=== PATIENT | male | born 1940 | race Caucasian/White ===

== ENCOUNTER → 2017-09-23 | Outpatient (CLI) | payer MEDICARE ==
[~2017-09-23] MED LIST: ASPI81TA82 PO; ECASA81 PO; LANO0.2510 PO; MULTTAB67 PO; TAB-TAB PO; TYLE325T PO
[2017-09-23 13:05] LABS: HEMATOCRIT 46.6 % (39.0-51.0); MEAN CELL VOLUME 94.2 FL (80.0-100.0); MEAN CORPUSCULAR HEMOGLOBIN 31.2 PG (27.0-34.0); MEAN CORPUSCULAR HGB CONC 33.2 % (32.0-36.0); PLATELET COUNT 132 TH/MM3 (150-450); RED BLOOD COUNT 4.95 MIL/MM3 (4.50-5.90); RED CELL DISTRIBUTION WIDTH 13.3 % (11.6-17.2); REVIEW FLAG FINAL; WHITE BLOOD COUNT 3.6 TH/MM3 (4.0-11.0)
--- NOTE | 2017-09-23 21:17 | EKG ---
Date Performed: 09/23/2017 Time Performed: 12:28:02 PTAGE: 77 years EKG: SINUS BRADYCARDIA BORDERLINE ECG NO PREVIOUS TRACING DOCTOR: Maximiliano Do Interpretating Date/Time 09/23/2017 21:15:45
== END ==
LOC: CPRE 12:07
PROVIDERS: ATTEND Specialist
DX: Z01.810 Encounter for preprocedural cardiovascular examination (principal); Z01.812 Encounter for preprocedural laboratory examination; R94.31 Abnormal electrocardiogram [ECG] [EKG]
CPT/HCPCS: 36415; 85027; 93005

== ENCOUNTER → 2017-09-25 | Day surgery (SDC) | payer MEDICARE ==
--- NOTE | 2017-09-24 18:52 | MH ---
cc: ERIK LANGE DATE OF ADMISSION: 09/25/2017 ADMITTING DIAGNOSIS: HISTORY OF PRESENT ILLNESS: The patient is a 77-year-old gentleman with chronic sinusitis and nasal obstruction for nasal sinus surgery. PAST MEDICAL HISTORY Unremarkable. PAST SURGICAL HISTORY: Notable for previous turbinectomy. REVIEW OF SYSTEMS, FAMILY HISTORY AND SOCIAL HISTORY Unremarkable PHYSICAL EXAMINATION Well-appearing patient, no acute distress noted. HEENT: Exam reveals the patient with septal deviation, turbinate hypertrophy and polyposis worse on right than left. Lungs: Clear. Heart: Regular rate and rhythm. Abdomen: Soft and nontender. Extremities: Without cyanosis, clubbing or edema. Neurologic: Alert, oriented, nonfocal neurologic exam. IMPRESSION A patient with chronic sinusitis and nasal obstruction for nasal sinus surgery. Instructed as to the method of surgery, possible complication including anesthetic complications, cardiac difficulty, pulmonary difficulty, stroke, coma or even . Surgical complications such as bleeding, infection, risk of injury to orbit including blindness and risk of injury to brain, including CSF leak, meningitis, brain abscess or even . The patient appeared to agree accept and understand the above-mentioned risks and benefits. No guarantees or warranties regarding outcome were given. We will therefore proceed with surgery. Erik Lange MD [facility]/JACE /5:07 PM /6:50 PM
[~2017-09-25] VITALS: Ht 185.4 cm; Wt 89.2 kg
[~2017-09-25] MED LIST changes: +*morphine SULFATE 8 MG/ML PERIprocedure ONLY ONE; +ACETAMINOPHEN/HYDROcodone 325 MG/7.5 MG TAB PO PRN; -ASPI81TA82 PO; +CHLORHEXIDINE GLUCONATE 2 % 1 PACK (2 CLOTHS) TOPICAL PRN; +DEXAMETHASONE SOD PHOS 4 MG/ML VIAL IV ONE; +DO NOT ADM ANY ANTICOAGULANT DRUGS PRN; +EPINEPHrine HCL (1:1000) 30 MG/30 ML VIAL ONE; +INSULIN HUMAN REGULAR 1,000 UNITS/10 ML VIAL SQ PRN; +LACTATED RINGER'S 1000 ML IV PRN; -LANO0.2510 PO; +LIDOCAINE 1%/EPINEPHrine 1:100,000 SOLN 20 ML VIAL ONE; +LIDOCAINE HCL 1% PF 5 ML AMPULE OTHER ONE; +METOPROLOL TARTRATE 25 MG TAB PO PRN; +MORPHINE SULFATE 2 MG/ML INJ IV PUSH PRN; +ONDANSETRON HCL 4 MG/2 ML VIAL IV PUSH ONE; +ONDANSETRON HCL 4 MG/2 ML VIAL IV PUSH PRN; +POVIDONE IODINE 5% (ANTISEPSIS KIT) 4 APPLICATIONS EACH NARE PRN; +PROPOFOL 200 MG/20 ML AMP IV ONE; +SODIUM CHLORID 0.9% 500 ML IV PRN; -TAB-TAB PO; +ePHEDrine/NS 25 MG/5 ML SYR IV ONE
[2017-09-25 11:50] VITALS: BP 141/79; PULSE 68; RESP 20; TEMP 97.5; O2SAT 93
--- NOTE | 2017-09-25 12:28 | MP ---
cc: ERIK LANGE DATE OF SURGERY 09/25/2017 PREOPERATIVE DIAGNOSES Nasal obstruction. Chronic sinusitis. Nasal polyposis. Turbinate hypertrophy. PROCEDURE Open septal reconstruction. Left frontal endoscopic sinusotomy. Right frontal endoscopic sinusotomy. Left endoscopic anterior-posterior ethmoidectomy. Right endoscopic anterior-posterior ethmoidectomy. Left endoscopic maxillary antrostomy with removal of tissue. Right endoscopic maxillary antrostomy with removal of tissue. Right nasal polypectomy. Left and right inferior turbinectomy, submucous resection ANESTHESIA General anesthesia. ESTIMATED BLOOD LOSS Less than 100 cc. COMPLICATIONS No complications. OPERATING SURGEON Dr. Lange. OPERATION FOLLOWS The patient was prepped and draped in usual fashion. 1% Xylocaine and 1:100,000 epinephrine injected into nasal septum bilaterally, polyps on the right side and middle meatus bilaterally. Once this was achieved, the balloon apparatus was used under endoscopic visualization to open the left frontal sinus initially catheterizing the sinus and confirming with light catheter placement, then advancing the balloon and inflating it to 6 atmospheres. At this point the microdebrider was then used under endoscopic visualization to remove the polyps from the right middle meatus and the naris and once this was achieved the microdebrider was used also to open the frontal sinus recess. Anterior-posterior ethmoidectomy was performed under endoscopic visualization as well as the natural antrostomy identified and enlarged and polypoid tissue suctioned from it. A Telfa splint was placed in the right middle meatus. Once this was achieved attention was turned to the left side whereby an uncinectomy was performed with microdebrider under endoscopic visualization. Anterior-posterior ethmoidectomy performed with microdebrider under endoscopic visualization and the natural antrostomy identified enlarged and polypoid tissue removed, all under endoscopic visualization. Telfa splint placed in middle meatus. Mucoperichondrial incision made on the left side of nose. Mucoperichondrial flap elevated. A significant amount of bone and cartilage were removed to improve nasal airway and reduce nasal fracture. Mucoperichondrial flap reapproximated. Using the coblator probe with power Level IV multiple insertions were made on both the left and right inferior turbinates significantly reducing the turbinate bulk without affecting mucosa, in other words a submucosal reduction. No active bleeding was noted. The nose was suctioned. The patient tolerated the procedure well. MD RONNI Ibarra /10:18 AM /12:23 PM
== END | disposition home or self-care (01) ==
LOC: HSDC 07:23
PROVIDERS: ATTEND Specialist
DX: J32.9 Chronic sinusitis, unspecified (principal); J34.3 Hypertrophy of nasal turbinates; J34.2 Deviated nasal septum; J33.9 Nasal polyp, unspecified
CPT/HCPCS: 00160; 30140; 30520; 31255; 31267; 31276; 88305; J0171; J1100; J2270; J2405; J3010; J7120; 88304